=== PATIENT | female | born 1965 | race Caucasian/White ===

== ENCOUNTER → 2023-11-07 09:14 | Outpatient (REF) | payer OTHER, SELFPAY ==
[2023-11-08 18:04] LABS: Urine Albumin Negative (Neg - Trace); Urine Bilirubin Negative (Negative); Urine Character Clear (Clear); Urine Color Yellow; Urine Glucose Negative (Negative); Urine Ketone Negative (Negative); Urine Leukocyte Trace (Negative); Urine Nitrite Negative (Negative); Urine Occult Blood Negative (Negative); Urine Specific Gravity 1.025 (<1.030); Urine Urobilinogen Negative (Neg - 1+)
[2023-11-08 18:14] LABS: Urine Squamous Cell 0-2 /LPF (Few)
[2023-11-08 18:15] LABS: Urine Calcium Oxalate Crystals Present; Urine Red Blood Cell None Seen /HPF (0-2); Urine White Cell 0-2 /HPF (0-5)
== END ==
LOC: CLAB 09:14
PROVIDERS: ATTENDING PHYSICIAN Obstetrics & Gynecology
DX: N39.0 Urinary tract infection, site not specified (principal)
CPT/HCPCS: 81003; 81015; 87086

== ENCOUNTER → 2023-12-05 16:18 | Outpatient (REF) | payer OTHER, SELFPAY | LOC: HWWDC 16:18 | PROVIDERS: ATTENDING PHYSICIAN Internal Medicine | DX: Z12.31 Encounter for screening mammogram for malignant neoplasm of breast (principal) | CPT/HCPCS: 77063; 77067 ==

== ENCOUNTER → 2025-02-05 14:44 | Outpatient (REF) | payer OTHER, SELFPAY | LOC: HWWDC 14:44 | PROVIDERS: ATTENDING PHYSICIAN Obstetrics & Gynecology Gynecology; FAMILY PHYSICIAN Internal Medicine | DX: Z12.31 Encounter for screening mammogram for malignant neoplasm of breast (principal) | CPT/HCPCS: 77063; 77067 ==